=== PATIENT | male | born 1960 | race Caucasian/White ===

== ENCOUNTER 2018-01-01 06:12 | Inpatient (IN) ==
[2018-01-01] MEDS ORDERED: IOPAMIDOL 100 ML BOTTLE IV ONE (06:13)
[2018-01-01] MEDS ORDERED: LACTATED RINGERS 1,000 ML IV ONE (06:23)
[2018-01-01] MEDS ORDERED: ONDANSETRON 4 MG/2 ML VIAL IV ONE (06:24)
[2018-01-01 07:24] LABS: Mean Cell Volume 98.9 fL (80.0-100.0); Mean Corpuscular HGB Conc 33.1 g/dL (31.0-36.0); Mean Corpuscular Hemoglobin 32.7 pg (26.0-34.0); Platelet Count 257 K/mcL (140-440); RBC 4.93 M/mcL (4.50-5.90); Red Cell Distribution Width 13.7 % (11.5-14.5)
[2018-01-01 07:42] LABS: ALT/SGPT 78 U/l (0-40); Albumin 4.7 gm/dL (3.2-5.2); Albumin/Globulin Ratio 1.7 (1.0-2.3); Alkaline Phosphatase 62 U/L (39-117); Amylase 34 U/L (28-100); Blood Urea Nitrogen 24 mg/dl (6-20); Lipase 27 U/L (7-60)
[2018-01-01 07:53] LABS: Band Neutrophils % 4 % (0-10); Lymphocytes % 6 % (15-49); Monocytes % (Manual) 6 % (1-12); Platelet Estimate NORMAL (NORMAL); RBC Morphology NORMAL (NORMAL); Segmented Neutrophils % 84 % (38-78)
[2018-01-01 08:20] LABS: Appearance,Urine CLEAR; Bacteria,Urine 0 /hpf (0); Bilirubin,Urine NEG (NEG); Color,Urine YELLOW; Glucose,Urine (UA) >=500 mg/dL (NEG); Leukocyte Esterase,Urine NEG /uL (NEG); Mucus,Urine FEW /hpf (0); Protein,Urine NEG (NEG); Specific Gravity,Urine 1.025 (1.000-1.035); Urine Blood NEG mg/dL (<0.03); Urine RBC 0 /hpf (0-1); Urine Squamous Epithelial Cell 0 /hpf (0-4); Urine WBC 1 /hpf (0-4); Urobilinogen,Urine NEG (NEG)
--- NOTE | 2018-01-01 08:20 | Emergency Department Note ---
Abdominal Pain HPI - General Chief Complaint: Abdominal Pain Stated Complaint: Abd pain Time Seen by Provider: 01/01/18 08:09 Source: patient Mode of arrival: ambulatory Limitations: no limitations - History of Present Illness HPI Narrative: This patient began having lower abdominal pain yesterday afternoon about 4:00. He vomited a number of times and had a little bit of loose stool. This pain also went into both testicles. However neither testicle is swollen. The pain does not seem to be more prominent on one side or the other. He has had kidney stones in the past and still has his appendix. He apparently has had gallbladder problems in the still has his gallbladder. However his pain seems much lower than gallbladder pain. - Related Data Home Medications Medication Instructions Recorded Confirmed ondansetron HCl 4 mg tablet 4 mg PO Q4H 07/08/16 12/22/17 cholecalciferol (vitamin D3) 2,000 1,000 unit PO QDAY cap 02/24/17 12/22/17 unit capsule SUMAtriptan SUCCINATE [Imitrex] 25 mg PO PRN PRN 04/14/17 12/22/17 nortriptyline 10 mg capsule 10 mg PO QHS 04/22/17 12/22/17 Previous Rx's Medication Instructions Recorded True Metrix Glucose Meter See Dose Instructions .ROUTE 09/01/16 .MEDSUPPLY #1 each NS cyanocobalamin (vit B-12) 1,000 See Label Instructions IM .COMPLEX 09/25/16 mcg/mL injection solution #1 ml True Metrix Glucose Test Strip See Dose Instructions .ROUTE 04/22/17 .MEDSUPPLY #100 each NS allopurinol 300 mg tablet 300 mg PO QDAY #90 tab 07/22/17 duloxetine 60 mg capsule,delayed 60 mg PO QDAY #60 cap 07/22/17 release lisinopril 40 mg tablet 40 mg PO QDAY #90 tab 07/22/17 metformin ER 750 mg 750 mg PO BID #180 tab 07/22/17 tablet,extended release 24 hr omeprazole 20 mg capsule,delayed 20 mg PO DAILY #90 cap 07/22/17 release gabapentin 600 mg tablet 600 mg PO TID #120 tab 09/20/17 dulaglutide 0.75 mg/0.5 mL 0.75 mg SUB-Q QWEEK #2 ml 10/03/17 subcutaneous pen injector true metrix lancets #100 each 10/25/17 hydrocodone 7.5 mg-acetaminophen 1 tab PO QDAY PRN #30 tab 12/29/17 325 mg tablet Allergies Allergy/AdvReac Type Severity Reaction Status Date / Time No Known Drug Allergies Allergy Verified 01/01/18 06:18 Review of Systems All systems ED: reviewed and negative except as stated. Abdominal Pain PMH - Past Medical History Medical history: Reports: DM, hyperlipidemia, hypertension, migraine, other - Social History Smoking status: Never smoker Physical Exam Limitations: no limitations General appearance: alert Head: atraumatic Eye: Present: normal appearance ENT: normal exam Neck: Present: normal inspection Chest: Present: normal inspection Respiratory: Present: normal lung sounds bilaterally Cardiovascular: Present: regular rate, normal rhythm, normal heart sounds Abdominal: Present: soft, tenderness. Absent: distention, guarding, rebound, rigidity Abdominal tenderness: Present: RLQ, LLQ, suprapubic, moderate Neurological: Present: alert Psychiatric: Present: normal affect, normal mood Skin: Present: warm, dry, intact Course Vital Signs Temperature 97.3 F 01/01/18 06:14 Pulse Rate 88 01/01/18 06:14 Respiratory Rate 22 01/01/18 06:14 Blood Pressure 155/90 01/01/18 06:14 Pulse Oximetry (%) 100 01/01/18 06:14 Temperature 97.3 F 01/01/18 06:14 Pulse Rate 104 H 01/01/18 08:19 Respiratory Rate 22 01/01/18 06:14 Blood Pressure 141/66 01/01/18 08:36 Pulse Oximetry (%) 92 01/01/18 08:19 Abdominal Pain - [facility] Narrative Medical decision making narrative: This patient is getting an abdominal CT scan and care of the patient will be turned over to Dr. Wilder at 9 AM. - Lab Data Lab results reviewed: Yes I reviewed the patient's lab results. Result diagrams: 01/01/18 06:22 01/01/18 06:22 Lab Results 01/01/18 01/01/18 01/01/18 Range/Units 06:22 06:22 06:22 WBC 25.5 H (4.5-11.0) K/mcL RBC 4.93 (4.50-5.90) M/mcL Hgb 16.1 (13.5-16.5) g/dL Hct 48.8 (41.0-55.0) % POC Hct 49.0 (41.0-55.0) % MCV 98.9 (80.0-100.0) fL MCH 32.7 (26.0-34.0) pg MCHC 33.1 (31.0-36.0) g/dL RDW 13.7 (11.5-14.5) % Plt Count 257 (140-440) K/mcL MPV 8.9 (7.4-10.4) fL Total Counted 100 Seg Neutrophils % 84 H (38-78) % Band Neutrophils % 4 (0-10) % Lymphocytes % 6 L (15-49) % Monocytes % (Manual) 6 (1-12) % Platelet Estimate Normal (NORMAL) RBC Morphology Normal (NORMAL) POC Sodium 139 (133-145) mmol/L Sodium 138 (133-145) mmol/L POC Potassium 4.4 (3.3-5.1) mmol/L Potassium 4.6 (3.3-5.1) mmol/L POC Chloride 102 (96-108) mmol/L Chloride 100 (96-108) mmol/L Carbon Dioxide 22 (22-30) mmol/L POC Total CO2 23 (22-30) mmol/L Anion Gap 16.0 (8-16) POC BUN 26 H (6-20) mg/dl BUN 24 H (6-20) mg/dl Creatinine 0.9 (0.7-1.2) mg/dl POC Creatinine 0.8 (0.7-1.2) mg/dl GFR Calculation 94 Glucose 336 H (70-105) mg/dL POC Glucose 332 H (70-105) mg/dL Calcium 10.0 (8.6-10.4) mg/dl POC WB Ioniz Calcium 1.11 L (1.16-1.32) mmol/L Total Bilirubin 0.7 (0.0-1.0) mg/dL AST 26 (0-37) U/l ALT 78 H (0-40) U/l Alkaline Phosphatase 62 (39-117) U/L Total Protein 7.4 (5.9-8.4) gm/dL Albumin 4.7 (3.2-5.2) gm/dL Globulin 2.7 (2.2-3.7) gm/dL Albumin/Globulin Ratio 1.7 (1.0-2.3) Amylase 34 (28-100) U/L Lipase 27 (7-60) U/L Urine Color Urine Appearance Urine pH (5.0-9.0) Ur Specific [place] (1.000-1.035) Urine Protein (NEG) mg/dL Urine Glucose (UA) (NEG) mg/dL Urine Ketones (NEG) mg/dL Urine Occult Blood (<0.03) mg/dL Urine Nitrate (NEG) Urine Bilirubin (NEG) mg/dL Urine Urobilinogen (NEG) mg/dL Ur Leukocyte Esterase (NEG) /uL Urine RBC (0-1) /hpf Urine WBC (0-4) /hpf Ur Squamous Epith Cells (0-4) /hpf Urine Bacteria (0) /hpf Urine Mucus (0) /hpf Ur Culture Indicated? 01/01/18 Range/Units 07:31 WBC (4.5-11.0) K/mcL RBC (4.50-5.90) M/mcL Hgb (13.5-16.5) g/dL Hct (41.0-55.0) % POC Hct (41.0-55.0) % MCV (80.0-100.0) fL MCH (26.0-34.0) pg MCHC (31.0-36.0) g/dL RDW (11.5-14.5) % Plt Count (140-440) K/mcL MPV (7.4-10.4) fL Total Counted Seg Neutrophils % (38-78) % Band Neutrophils % (0-10) % Lymphocytes % (15-49) % Monocytes % (Manual) (1-12) % Platelet Estimate (NORMAL) RBC Morphology (NORMAL) POC Sodium (133-145) mmol/L Sodium (133-145) mmol/L POC Potassium (3.3-5.1) mmol/L Potassium (3.3-5.1) mmol/L POC Chloride (96-108) mmol/L Chloride (96-108) mmol/L Carbon Dioxide (22-30) mmol/L POC Total CO2 (22-30) mmol/L Anion Gap (8-16) POC BUN (6-20) mg/dl BUN (6-20) mg/dl Creatinine (0.7-1.2) mg/dl POC Creatinine (0.7-1.2) mg/dl GFR Calculation Glucose (70-105) mg/dL POC Glucose (70-105) mg/dL Calcium (8.6-10.4) mg/dl POC WB Ioniz Calcium (1.16-1.32) mmol/L Total Bilirubin (0.0-1.0) mg/dL AST (0-37) U/l ALT (0-40) U/l Alkaline Phosphatase (39-117) U/L Total Protein (5.9-8.4) gm/dL Albumin (3.2-5.2) gm/dL Globulin (2.2-3.7) gm/dL Albumin/Globulin Ratio (1.0-2.3) Amylase (28-100) U/L Lipase (7-60) U/L Urine Color Yellow Urine Appearance Clear Urine pH 5.0 (5.0-9.0) Ur Specific [place] 1.025 (1.000-1.035) Urine Protein Neg (NEG) mg/dL Urine Glucose (UA) >=500 A (NEG) mg/dL Urine Ketones 20 A (NEG) mg/dL Urine Occult Blood Neg (<0.03) mg/dL Urine Nitrate Neg (NEG) Urine Bilirubin Neg (NEG) mg/dL Urine Urobilinogen Neg (NEG) mg/dL Ur Leukocyte Esterase Neg (NEG) /uL Urine RBC 0 (0-1) /hpf Urine WBC 1 (0-4) /hpf Ur Squamous Epith Cells 0 (0-4) /hpf Urine Bacteria 0 (0) /hpf Urine Mucus Few (0) /hpf Ur Culture Indicated? No Disposition Pt seen by PUBLIC TRANSPORTATION INSPECTOR/PA only: No Clinical Impression: Abdominal pain Disposition: Still a Patient Referrals: Antonio Robin MD [Primary Care Provider] -
--- NOTE | 2018-01-01 10:17 | Cat Scan Report ---
CLINICAL INFORMATION: Abdominal pain and leukocytosis COMPARISON: 08/28/[address] TECHNIQUE: Following enteric contrast, 80 cc of Isovue-300 were injected intravenously, and 60 seconds later, 0.625 mm helical slices were obtained from the mid heart through the subtrochanteric regions. Following reconstruction, 2.5 mm sagittal, coronal and axial reformatted images were processed and reviewed at bone, lung and soft tissue windows. Five minutes later, 0.625 mm helical slices were obtained from the mid heart through the kidneys and viewed at soft tissue windows.The exam was performed using radiation dose optimization techniques including, but not limited to, automated exposure control, adjustment of the mA and/or kV according to patient size and use of iterative reconstruction technique. FINDINGS: Mild bibasilar atelectasis appreciated. No effusion. The visualized heart is normal. Images through the abdomen show marked fatty change within the liver with a small region of focal fat sparing in the ki hepatis. It is identical to the remote study. No focal hepatic lesions. The gallbladder and bile ducts are normal. Both kidneys, adrenal glands, spleen, pancreas and aorta, including aortic branches, are normal in size, configuration and attenuation without focal lesion. Images through the pelvis show Durant catheter properly position in the urinary bladder which is collapsed - there are no gross evidence of bladder normalities. The prostate and seminal vesicles are normal. There is marked concentric wall thickening of the distal one half of the transverse, descending colon and proximal half of the sigmoid colon. In this region, the right wall is low attenuation and there is moderate inflammation or edema in the pericolonic fat. Small amount of fluid present in the pericolonic gutter and also the deep true pelvis. The remainder of the colon, small bowel and stomach are normal. Bone windows show no osseous abnormality IMPRESSION: Marked concentric wall thickening of distal one half of the transverse, descending and proximal one half of the sigmoid colon. Primary diagnostic considerations would be infectious colitis or, possible, inflammatory bowel disease. Ischemic colitis would be much less likely. Suggest colonoscopy Marked fatty change within the liver - stable since the remote CT over 12 years ago Interpreted and Authenticated by: Rogelio Pabon 01/01/18
[2018-01-01] MEDS ORDERED: INSULIN REGULAR, HUMAN 1 UNIT/0.01 ML UNIT IV ONE (10:20)
--- NOTE | 2018-01-01 12:22 | Emergency Department Note ---
Abdominal Pain HPI - General Chief Complaint: Abdominal Pain Stated Complaint: Abd pain Time Seen by Provider: 01/01/18 08:09 Source: patient Mode of arrival: ambulatory Limitations: no limitations - History of Present Illness HPI Narrative: Received patient in checkout from Dr. Chris linares. Patient everted been seen and examined and worked up with laboratory. Because of leukocytosis Dr. linares ordered a CT scan of the abdomen pelvis. Patient had been complaining of lower abdominal pain along with nausea vomiting diarrhea. He was mildly tachycardic but without fever - Related Data Home Medications Medication Instructions Recorded Confirmed ondansetron HCl 4 mg tablet 4 mg PO Q4H 07/08/16 01/01/18 cholecalciferol (vitamin D3) 2,000 1,000 unit PO QDAY cap 02/24/17 01/01/18 unit capsule SUMAtriptan SUCCINATE [Imitrex] 25 mg PO PRN PRN 04/14/17 01/01/18 nortriptyline 10 mg capsule 10 mg PO QHS 04/22/17 01/01/18 Previous Rx's Medication Instructions Recorded True Metrix Glucose Meter See Dose Instructions .ROUTE 09/01/16 .MEDSUPPLY #1 each NS cyanocobalamin (vit B-12) 1,000 See Label Instructions IM .COMPLEX 09/25/16 mcg/mL injection solution #1 ml True Metrix Glucose Test Strip See Dose Instructions .ROUTE 04/22/17 .MEDSUPPLY #100 each NS allopurinol 300 mg tablet 300 mg PO QDAY #90 tab 07/22/17 duloxetine 60 mg capsule,delayed 60 mg PO QDAY #60 cap 07/22/17 release lisinopril 40 mg tablet 40 mg PO QDAY #90 tab 07/22/17 metformin ER 750 mg 750 mg PO BID #180 tab 07/22/17 tablet,extended release 24 hr omeprazole 20 mg capsule,delayed 20 mg PO DAILY #90 cap 07/22/17 release gabapentin 600 mg tablet 600 mg PO TID #120 tab 09/20/17 dulaglutide 0.75 mg/0.5 mL 0.75 mg SUB-Q QWEEK #2 ml 10/03/17 subcutaneous pen injector true metrix lancets #100 each 10/25/17 hydrocodone 7.5 mg-acetaminophen 1 tab PO QDAY PRN #30 tab 12/29/17 325 mg tablet Allergies Allergy/AdvReac Type Severity Reaction Status Date / Time No Known Drug Allergies Allergy Verified 01/01/18 06:18 Abdominal Pain PMH - Past Medical History Medical history: Reports: DM, hyperlipidemia, hypertension, migraine, other - Social History Smoking status: Never smoker Physical Exam Examination the patient's abdomen show tenderness in bilateral lower quadrants. No rigidity or guarding though but patient is lying flat Limitations: no limitations General appearance: alert Course Vital Signs Temperature 97.3 F 01/01/18 06:14 Pulse Rate 88 01/01/18 06:14 Respiratory Rate 22 01/01/18 06:14 Blood Pressure 155/90 01/01/18 06:14 Pulse Oximetry (%) 100 01/01/18 06:14 Temperature 97.6 F 01/01/18 13:56 Pulse Rate 93 H 01/01/18 13:56 Respiratory Rate 16 01/01/18 13:56 Blood Pressure 173/97 01/01/18 13:56 Pulse Oximetry (%) 93 01/01/18 13:56 Abdominal Pain - Lab Data Lab results reviewed: Yes I reviewed the patient's lab results. Result diagrams: 01/01/18 06:22 01/01/18 06:22 Lab Results 01/01/18 01/01/18 01/01/18 Range/Units 06:22 06:22 06:22 WBC 25.5 H (4.5-11.0) K/mcL RBC 4.93 (4.50-5.90) M/mcL Hgb 16.1 (13.5-16.5) g/dL Hct 48.8 (41.0-55.0) % POC Hct 49.0 (41.0-55.0) % MCV 98.9 (80.0-100.0) fL MCH 32.7 (26.0-34.0) pg MCHC 33.1 (31.0-36.0) g/dL RDW 13.7 (11.5-14.5) % Plt Count 257 (140-440) K/mcL MPV 8.9 (7.4-10.4) fL Total Counted 100 Seg Neutrophils % 84 H (38-78) % Band Neutrophils % 4 (0-10) % Lymphocytes % 6 L (15-49) % Monocytes % (Manual) 6 (1-12) % Platelet Estimate Normal (NORMAL) RBC Morphology Normal (NORMAL) PT INR APTT POC Sodium 139 (133-145) mmol/L Sodium 138 (133-145) mmol/L POC Potassium 4.4 (3.3-5.1) mmol/L Potassium 4.6 (3.3-5.1) mmol/L POC Chloride 102 (96-108) mmol/L Chloride 100 (96-108) mmol/L Carbon Dioxide 22 (22-30) mmol/L POC Total CO2 23 (22-30) mmol/L Anion Gap 16.0 (8-16) POC BUN 26 H (6-20) mg/dl BUN 24 H (6-20) mg/dl Creatinine 0.9 (0.7-1.2) mg/dl POC Creatinine 0.8 (0.7-1.2) mg/dl GFR Calculation 94 Glucose 336 H (70-105) mg/dL POC Glucose 332 H (70-105) mg/dL Calcium 10.0 (8.6-10.4) mg/dl POC WB Ioniz Calcium 1.11 L (1.16-1.32) mmol/L Total Bilirubin 0.7 (0.0-1.0) mg/dL AST 26 (0-37) U/l ALT 78 H (0-40) U/l Alkaline Phosphatase 62 (39-117) U/L Total Protein 7.4 (5.9-8.4) gm/dL Albumin 4.7 (3.2-5.2) gm/dL Globulin 2.7 (2.2-3.7) gm/dL Albumin/Globulin Ratio 1.7 (1.0-2.3) Amylase 34 (28-100) U/L Lipase 27 (7-60) U/L Urine Color Urine Appearance Urine pH (5.0-9.0) Ur Specific [place] (1.000-1.035) Urine Protein (NEG) mg/dL Urine Glucose (UA) (NEG) mg/dL Urine Ketones (NEG) mg/dL Urine Occult Blood (<0.03) mg/dL Urine Nitrate (NEG) Urine Bilirubin (NEG) mg/dL Urine Urobilinogen (NEG) mg/dL Ur Leukocyte Esterase (NEG) /uL Urine RBC (0-1) /hpf Urine WBC (0-4) /hpf Ur Squamous Epith Cells (0-4) /hpf Urine Bacteria (0) /hpf Urine Mucus (0) /hpf Ur Culture Indicated? 01/01/18 01/01/18 Range/Units 06:22 07:31 WBC (4.5-11.0) K/mcL RBC (4.50-5.90) M/mcL Hgb (13.5-16.5) g/dL Hct (41.0-55.0) % POC Hct (41.0-55.0) % MCV (80.0-100.0) fL MCH (26.0-34.0) pg MCHC (31.0-36.0) g/dL RDW (11.5-14.5) % Plt Count (140-440) K/mcL MPV (7.4-10.4) fL Total Counted Seg Neutrophils % (38-78) % Band Neutrophils % (0-10) % Lymphocytes % (15-49) % Monocytes % (Manual) (1-12) % Platelet Estimate (NORMAL) RBC Morphology (NORMAL) PT TNP INR TNP APTT TNP POC Sodium (133-145) mmol/L Sodium (133-145) mmol/L POC Potassium (3.3-5.1) mmol/L Potassium (3.3-5.1) mmol/L POC Chloride (96-108) mmol/L Chloride (96-108) mmol/L Carbon Dioxide (22-30) mmol/L POC Total CO2 (22-30) mmol/L Anion Gap (8-16) POC BUN (6-20) mg/dl BUN (6-20) mg/dl Creatinine (0.7-1.2) mg/dl POC Creatinine (0.7-1.2) mg/dl GFR Calculation Glucose (70-105) mg/dL POC Glucose (70-105) mg/dL Calcium (8.6-10.4) mg/dl POC WB Ioniz Calcium (1.16-1.32) mmol/L Total Bilirubin (0.0-1.0) mg/dL AST (0-37) U/l ALT (0-40) U/l Alkaline Phosphatase (39-117) U/L Total Protein (5.9-8.4) gm/dL Albumin (3.2-5.2) gm/dL Globulin (2.2-3.7) gm/dL Albumin/Globulin Ratio (1.0-2.3) Amylase (28-100) U/L Lipase (7-60) U/L Urine Color Yellow Urine Appearance Clear Urine pH 5.0 (5.0-9.0) Ur Specific [place] 1.025 (1.000-1.035) Urine Protein Neg (NEG) mg/dL Urine Glucose (UA) >=500 A (NEG) mg/dL Urine Ketones 20 A (NEG) mg/dL Urine Occult Blood Neg (<0.03) mg/dL Urine Nitrate Neg (NEG) Urine Bilirubin Neg (NEG) mg/dL Urine Urobilinogen Neg (NEG) mg/dL Ur Leukocyte Esterase Neg (NEG) /uL Urine RBC 0 (0-1) /hpf Urine WBC 1 (0-4) /hpf Ur Squamous Epith Cells 0 (0-4) /hpf Urine Bacteria 0 (0) /hpf Urine Mucus Few (0) /hpf Ur Culture Indicated? No - Radiology Data Radiology results reviewed: Yes I reviewed the patient's radiology results. CT scan showed possible colitis. Please see full report Disposition Pt seen by INSURANCE SALESMAN/PA only: No Clinical Impression: Colitis Summary: After getting CT report back and discussing the situation with the patient, I discussed the patient with Dr. Isma Oshea general surgeon who agreed to consult on the patient. He decided to admit the patient for further workup and care Disposition: Xfer As Inpt ([facility]) Condition: Serious
--- NOTE | 2018-01-01 13:28 | General Surg History&Physical ---
History of Present Illness Patient information: Note initiated : 01/01/18 at 1:25 pm Service Date, if different from initiated Date: [] Patient: Dandre Smith a 57 y/o M admitted on for Abd pain. Chief Complaint: [recurrent abdominal pain nausea vomiting diarrhea] HPI: Mr. Smith is a 57 year old M was admitted with severe abdominal pain.. He stated that about 1600 hrs. yesterday he had severe mid abdominal pain that increased on the left side and was followed with nausea vomiting and diarrhea. He had at least 6 episodes of vomiting.. He had severe cramps throughout the night and noted that he had blood in his bowels. He finally came to the emergency room for evaluation. He states that he had a similar episode about 4 weeks ago when he had severe pain with nausea but no vomiting or diarrhea. This gradually resolved. In the emergency room he was noted to have a tender abdomen.. His white blood count was 25,000. CT shows circumferential thickening of the distal transverse descending and sigmoid colon.. There is no free air. There is some edema of the mesentery. He does not have an obstructive pattern. There is no evidence of pneumatosis. Patient is felt to have segmental ischemic colitis and is admitted for treatment. Lactic acid level is pending. Review of Systems - Constitutional anorexia, fatigue, headache(s), malaise, snoring, weakness - EENT Nose, mouth and throat: abnormal hearing, dental pain, other (bilateral tinnitus ) - Cardiovascular no chest pain with activity, no dyspnea on exertion, no palpatations, no syncope - Respiratory cough, snoring, no excessive phlegm production, no pain with cough - Gastrointestinal abdominal pain, belching, change in bowel habits, cramping, diarrhea, heartburn , hematochezia, nausea, vomiting - Genitourinary difficulty urinating, scrotal swelling, testicular pain, urinary hesitancy, urinary urgency - Musculoskeletal arthralgias, back pain, joint swelling, stiffness, tingling - Integumentary no new lesions, no non-healing lesions, no pruritus, no rash - Neurological abnormal hearing, numbness, paresthesias, restless legs, no convulsions, no dizziness, no frequent falls, no vertigo - Psychiatric anxiety, depression - Endocrine no fatigue, no palpitations, no polydipsia, no polyphagia, no polyuria - Hematologic/Lymphatic no easy bleeding, no easy bruising, no lymphadenopathy - Allergic/Immunologic no tongue swelling, no throat swelling, no uticaria, no wheezing, no lip swelling Past History Past medical history: Hepatitis C treated STOUT syndrome Hypertension Diabetes mellitus Diabetic polyneuropathy Right hip pain Gout Chronic obstructive sleep apnea Past surgical history: Right rotator cuff repair 2 Left rotator cuff repair Left knee meniscectomy Past family history: Mother age 79 with hypertension and history of breast cancer Father age 64 with liver cancer Grandmother with diabetes mellitus 4 siblings alive and well Past social history: Present tobacco use Regular marijuana use History of alcohol abuse stopped in April 20 Medications and Allergies Home Medications Medication Instructions Recorded Confirmed Type ondansetron HCl 4 mg tablet 4 mg PO Q4H 07/08/16 01/01/18 History True Metrix Glucose Meter See Dose Instructions .ROUTE 09/01/16 12/22/17 Rx .MEDSUPPLY #1 each NS cyanocobalamin (vit B-12) 1,000 See Label Instructions IM .COMPLEX 09/25/16 Rx mcg/mL injection solution #1 ml cholecalciferol (vitamin D3) 2,000 1,000 unit PO QDAY cap 02/24/17 01/01/18 History unit capsule SUMAtriptan SUCCINATE [Imitrex] 25 mg PO PRN PRN 04/14/17 01/01/18 History True Metrix Glucose Test Strip See Dose Instructions .ROUTE 04/22/17 12/22/17 Rx .MEDSUPPLY #100 each NS nortriptyline 10 mg capsule 10 mg PO QHS 04/22/17 01/01/18 History allopurinol 300 mg tablet 300 mg PO QDAY #90 tab 07/22/17 01/01/18 Rx duloxetine 60 mg capsule,delayed 60 mg PO QDAY #60 cap 07/22/17 01/01/18 Rx release lisinopril 40 mg tablet 40 mg PO QDAY #90 tab 07/22/17 01/01/18 Rx metformin ER 750 mg 750 mg PO BID #180 tab 07/22/17 01/01/18 Rx tablet,extended release 24 hr omeprazole 20 mg capsule,delayed 20 mg PO DAILY #90 cap 07/22/17 01/01/18 Rx release gabapentin 600 mg tablet 600 mg PO TID #120 tab 09/20/17 01/01/18 Rx dulaglutide 0.75 mg/0.5 mL 0.75 mg SUB-Q QWEEK #2 ml 10/03/17 01/01/18 Rx subcutaneous pen injector true metrix lancets #100 each 10/25/17 12/22/17 Rx hydrocodone 7.5 mg-acetaminophen 1 tab PO QDAY PRN #30 tab 12/29/17 01/01/18 Rx 325 mg tablet Allergies Allergy/AdvReac Type Severity Reaction Status Date / Time No Known Drug Allergies Allergy Verified 01/01/18 06:18 Exam Temp Pulse Resp BP Pulse Ox 97.3 F 92 H 22 151/91 96 01/01/18 06:14 01/01/18 12:40 01/01/18 06:14 01/01/18 12:40 01/01/18 12:40 - General physical appearance well developed, well nourished, no distress - Eyes PERRL, normal ocular movement - ENT normal pinna, normal nares, normal mucosa, no hearing loss, no congestion - Head Head exam IM: Present: atraumatic, normal inspection, normocephalic - Neck no masses, no bruits, trachea midline, no venous distension, other (right neck mass anterior to the sternocleidomastoid muscle mid neck which appears to be fixed but nontender; not associated with the thyroid gland) - Cardiovascular Cardiovascular exam IM: Present: normal rate and rhythm, RRR, +S1, +S2. Absent : gallop, JVD, systolic murmur - Respiratory normal expansion, normal respiratory effort, clear to percussion, clear to auscultation - Abdomen Abdomen: Present: soft, tender ( diffuse tenderness more prominent left upper quadrant and left lateral abdomen extending down into the pelvis), bowel sounds , distended ( diffusely distended and tympanitic with guarding) Hernia: Present: none - Genitourinary Present: normal penis with no external lesions - Integumentary Present: no rash, no growths, no abnormal pigmentation - Neurologic Present: normal coordination, normal sensation - Musculoskeletal Present: normal gait, normal posture - Psychiatric Present: oriented to time, oriented to person, oriented to place, speech is normal, memory intact Assessment and Plan (1) Acute ischemic colitis Bowel rest Zosyn and Flagyl IV Follow-up CT in 4 days Status: Acute (2) Mass of right side of neck CT of neck soft tissue with contrast with possible follow-up biopsy Status: Acute (3) Diabetic neuropathy Continue home medications Status: Acute Qualifiers: Diabetes mellitus type: type 2 Diabetes mellitus complication detail: with other neurological complication Qualified Code(s): E11.49 - Type 2 diabetes mellitus with other diabetic neurological complication (4) Hereditary hemochromatosis Status: Acute (5) TRAM (obstructive sleep apnea) Status: Acute (6) STOUT (nonalcoholic steatohepatitis) Status: Chronic (7) Type 2 diabetes mellitus Status: Chronic Comment: With peripheral neuropathy Qualifiers: Diabetes mellitus halfway insulin use: without halfway use Diabetes mellitus complication status: with neurologic complications Diabetes mellitus complication detail: with polyneuropathy Qualified Code(s): E11.42 - Type 2 diabetes mellitus with diabetic polyneuropathy
[2018-01-01] MEDS ORDERED: ONDANSETRON 4 MG/2 ML VIAL IV PRN (13:42)
--- NOTE | 2018-01-01 14:33 | XRay Report ---
CLINICAL INFORMATION: Preoperative evaluation - hypoxemia COMPARISON: None. FINDINGS: The heart size, mediastinum and pulmonary vessels are unremarkable. The lungs are clear. There are no effusions. The bones and soft tissues are within normal limits. IMPRESSION: Normal chest. Interpreted and Authenticated by: Rogelio Pabon 01/01/18
[2018-01-01] MEDS: 0.9 % SODIUM CHLORIDE 1,000 ML IV SCH ×3 (14:48→23:52)
[2018-01-01] MEDS: PIPERACILLIN SODIUM/TAZOBACTAM 3.375 GM in DEXTROSE 5% IN WATER 50 ML IV SCH ×3 (14:52→23:52)
[2018-01-01] MEDS: GABAPENTIN 300 MG CAPSULE PO SCH ×2 (14:52→21:02)
[2018-01-01] MEDS: 0.9 % SODIUM CHLORIDE 10 ML SYRINGE IV SCH ×2 (16:31→21:05)
[2018-01-01] MEDS ORDERED: INSULIN LISPRO 1 UNIT/0.01 ML UNIT SQ ONE (17:10)
[2018-01-01] MEDS: INSULIN LISPRO 1 UNIT/0.01 ML UNIT SQ SCH ×2 (17:17→21:02)
[2018-01-01] MEDS: HYDROmorphone 2 MG TABLET PO PRN (17:17)
[2018-01-01] MEDS ORDERED: INSULIN LISPRO 1 UNIT/0.01 ML UNIT SQ SCH (18:00)
[2018-01-01] MEDS: NORTRIPTYLINE 10 MG CAPSULE PO SCH (21:02)
[2018-01-02] MEDS: 0.9 % SODIUM CHLORIDE 10 ML SYRINGE IV SCH ×3 (05:22→21:33)
[2018-01-02] MEDS: 0.9 % SODIUM CHLORIDE 1,000 ML IV SCH ×4 (05:22→21:31)
[2018-01-02 05:28] LABS: Mean Cell Volume 99.1 fL (80.0-100.0); Mean Corpuscular HGB Conc 33.3 g/dL (31.0-36.0); Platelet Count 187 K/mcL (140-440); RBC 4.27 M/mcL (4.50-5.90)
[2018-01-02] MEDS: PIPERACILLIN SODIUM/TAZOBACTAM 3.375 GM in DEXTROSE 5% IN WATER 50 ML IV SCH ×3 (05:35→19:57)
[2018-01-02 06:04] LABS: ALT/SGPT 48 U/l (0-40); Albumin 3.7 gm/dL (3.2-5.2); Albumin/Globulin Ratio 1.5 (1.0-2.3); Alkaline Phosphatase 55 U/L (39-117); Bilirubin,Direct < 0.2 mg/dL (0.0-0.3); Blood Urea Nitrogen 15 mg/dl (6-20); Gamma Glutamyl Transpeptidase 35 U/L (8-61); Uric Acid 2.6 mg/dL (2.5-8.0)
[2018-01-02 06:35] LABS: Hemoglobin A1C 8.6 % HGB (4.0-6.0)
[2018-01-02] MEDS: INSULIN LISPRO 1 UNIT/0.01 ML UNIT SQ SCH ×4 (07:43→21:25)
[2018-01-02] MEDS: PANTOPRAZOLE 40 MG TABLET PO SCH (07:43)
[2018-01-02 07:48] LABS: Band Neutrophils % 4 % (0-10); Lymphocytes % 9 % (15-49); Monocytes % (Manual) 13 % (1-12); Platelet Estimate NORMAL (NORMAL); RBC Morphology NORMAL (NORMAL); Segmented Neutrophils % 74 % (38-78)
[2018-01-02] MEDS: DULoxetine 30 MG CAPSULE PO SCH (08:55)
[2018-01-02] MEDS: LISINOPRIL 20 MG TABLET PO SCH (08:55)
[2018-01-02] MEDS: ENOXAPARIN 40 MG/0.4 ML SYRINGE SQ SCH (08:56)
[2018-01-02] MEDS: GABAPENTIN 300 MG CAPSULE PO SCH ×3 (08:56→21:24)
[2018-01-02] MEDS: HYDROmorphone 2 MG TABLET PO PRN (12:40)
--- NOTE | 2018-01-02 14:08 | General Surgery Progress Note ---
Subjective Patient reports: feels better, pain is less (now he had abdominal pain), flatus , bowel movement, blood in stool, afebrile Narrative: Note initiated : 01/02/18 at 2:06 pm Service Date, if different from initiated Date: [] Patient: Dandre Smith 57 y/o M admitted on 01/01/18 for Abd pain. Chief Complaint: [patient feels better but he is still having significant abdominal pain which is primarily left sided and hypogastric and suprapubic. He is passing flatus and has had bowel movement with some blood seen. He has not had nausea or vomiting. White blood count is minimally decreased.] Objective Temp Pulse Resp BP Pulse Ox 98.7 F 89 16 127/76 91 01/02/18 12:41 01/02/18 11:57 01/02/18 11:57 01/02/18 11:57 01/02/18 12:41 - Additional Data Intake & Output - Last 24 hours: Intake & Output 12/31/17 01/01/18 01/02/18 01/03/18 05:59 05:59 05:59 05:59 Intake Total 4050 / 4050 2610 / 2610 Output Total 1225 / 1225 700 / 700 Balance 2825 / 2825 1910 / 1910 Weight 159 lb - General physical appearance well developed, well nourished, moderate pain - Eyes PERRL, normal ocular movement - ENT normal pinna, normal nares, normal mucosa, no hearing loss, no congestion - Neck other (right neck mass) - Respiratory normal expansion, normal respiratory effort, clear to percussion, clear to auscultation - Cardiovascular Cardiovascular exam: Present: normal rate and rhythm, RRR, +S1, +S2. Absent: JVD, tachycardia - Abdomen tender ( diffuse tenderness of left abdomen and pelvis), bowel sounds (present) , surgical scars (none), masses (none) - Integumentary no rash, no growths, no abnormal pigmentation - Neurologic normal coordination, normal sensation - Musculoskeletal normal gait, normal posture - Psychiatric oriented to time, oriented to person, oriented to place, speech is normal, memory intact - Labs 01/02/18 04:00 01/02/18 04:00 Diabetes panel 01/01/18 01/02/18 01/02/18 Range/Units 06:22 04:00 04:00 Sodium 134 (133-145) mmol/L Potassium 4.0 (3.3-5.1) mmol/L Chloride 98 (96-108) mmol/L Carbon Dioxide 25 (22-30) mmol/L BUN 15 (6-20) mg/dl Creatinine 0.8 (0.7-1.2) mg/dl Glucose 209 H (70-105) mg/dL Hemoglobin A1c TNP 8.6 H Calcium 8.9 (8.6-10.4) mg/dl AST 15 (0-37) U/l ALT 48 H (0-40) U/l Alkaline Phosphatase 55 (39-117) U/L Total Protein 6.2 (5.9-8.4) gm/dL Albumin 3.7 (3.2-5.2) gm/dL Triglycerides 102 (<150) mg/dl Thyroid panel 01/01/18 Range/Units 06:22 TSH 1.34 (0.27-5.01) uIU/ml Calcium panel 01/02/18 Range/Units 04:00 Calcium 8.9 (8.6-10.4) mg/dl Phosphorus 2.3 L (2.7-4.5) mg/dL Albumin 3.7 (3.2-5.2) gm/dL Pituitary panel 01/01/18 01/02/18 Range/Units 06:22 04:00 Sodium 134 (133-145) mmol/L Potassium 4.0 (3.3-5.1) mmol/L Chloride 98 (96-108) mmol/L Carbon Dioxide 25 (22-30) mmol/L BUN 15 (6-20) mg/dl Creatinine 0.8 (0.7-1.2) mg/dl Glucose 209 H (70-105) mg/dL Calcium 8.9 (8.6-10.4) mg/dl TSH 1.34 (0.27-5.01) uIU/ml Adrenal panel 01/02/18 Range/Units 04:00 Sodium 134 (133-145) mmol/L Potassium 4.0 (3.3-5.1) mmol/L Chloride 98 (96-108) mmol/L Carbon Dioxide 25 (22-30) mmol/L BUN 15 (6-20) mg/dl Creatinine 0.8 (0.7-1.2) mg/dl Glucose 209 H (70-105) mg/dL Calcium 8.9 (8.6-10.4) mg/dl Total Bilirubin 1.0 (0.0-1.0) mg/dL AST 15 (0-37) U/l ALT 48 H (0-40) U/l Alkaline Phosphatase 55 (39-117) U/L Total Protein 6.2 (5.9-8.4) gm/dL Albumin 3.7 (3.2-5.2) gm/dL Assessment and Plan (1) Acute ischemic colitis Status: Acute Assessment and plan: Will continue present therapy Current Visit: Yes (2) Mass of right side of neck Status: Acute Assessment and plan: CT of neck to be done today Current Visit: Yes (3) Diabetic neuropathy Status: Acute Current Visit: No (4) Hereditary hemochromatosis Status: Acute Current Visit: No (5) TRAM (obstructive sleep apnea) Status: Acute Current Visit: No (6) STOUT (nonalcoholic steatohepatitis) Status: Chronic Current Visit: No (7) Type 2 diabetes mellitus Problem details: With peripheral neuropathy Status: Chronic Current Visit: No - Time Spent With Patient Total time spent is greater than 50% in coordination of care (as documented) at patient's floor/unit and/or counseling patient:
[2018-01-02] MEDS ORDERED: IOPAMIDOL 100 ML BOTTLE IV ONE (14:24)
[2018-01-02] MEDS ORDERED: POTASSIUM PHOSPHATE 40 MEQ in DEXTROSE 5% IN WATER 500 ML IV ONE (15:00)
[2018-01-02] MEDS ORDERED: MEPERIDINE 50 MG/ML INJECTION IV PRN (17:20)
[2018-01-02] MEDS ORDERED: KETOROLAC 15 MG/ML VIAL ONE ×2 (17:23→17:28)
[2018-01-02] MEDS: KETOROLAC 30 MG/ML VIAL IV SCH ×2 (18:03→23:10)
[2018-01-02] MEDS ORDERED: MEPERIDINE 50 MG/ML INJECTION ONE (18:21)
[2018-01-02] MEDS: ACETAMINOPHEN 1,000 MG/100 ML BOTTLE IV SCH (20:45)
--- NOTE | 2018-01-02 20:59 | Cat Scan Report ---
CLINICAL INFORMATION: Small indurated mass in the right anterior triangle of the neck COMPARISON: None. TECHNIQUE: 80 cc of Isovue-300 were injected intravenously and 25 seconds later, 2.5 mm helical slices were obtained from the inferior orbit through the supraclavicular region. Following reconstruction, 2.5 mm sagittal and coronal reformations were processed. The exam was reviewed at bone and soft tissue windows . The exam was performed using radiation dose optimization techniques including, but not limited to, automated exposure control, adjustment of the mA and/or kV according to patient size and use of iterative reconstruction technique. FINDINGS: There is a 2 cm well-circumscribed low-attenuation mass either adjacent to, or arising from, the anterior border of the mid right sternocleidomastoid muscle. The lesion is located anterior to the right internal jugular vein and lateral to the carotid bifurcation. There is a single septation extending across the mass. It measures 27 Hounsfield units. There is no adenopathy in the adjacent soft tissues nor the remainder of the deep or cervical region. The carotid and jugular vascular systems are normal. True and false focal cords, epiglottis, aryepiglottic folds, tongue base and prevertebral soft tissues are all normal. Thyroid is normal. The submandibular and parotid glands are symmetric and appear unremarkable. Cervical spine is anatomically aligned. At C4-5 and C5-6 mild broad disc for, disease with right-sided asymmetry resulting in moderate right lateral recess narrowing potentially impinging the exiting right right C5 and C6 nerve roots. IMPRESSION: 2 cm well-defined low-attenuation lesion either arising from, or juxtaposed to, the anterior border of the right sternocleidomastoid muscle. This could represent a sarcoma, a pathologic lymph node, lymphoma or a complex second brachial cleft cyst. Percutaneous ultrasound-guided biopsy has been ordered C4-5 and C5-6: Moderate broad disc spur, disease right-sided asymmetry resulting in moderate right lateral recess and IV foraminal narrowing at each level possible impingement exiting right C5 and C6 nerve roots. Interpreted and Authenticated by: Rogelio Pabon 01/02/18
[2018-01-02] MEDS: NORTRIPTYLINE 10 MG CAPSULE PO SCH (21:24)
[2018-01-03] MEDS: PIPERACILLIN SODIUM/TAZOBACTAM 3.375 GM in DEXTROSE 5% IN WATER 50 ML IV SCH ×4 (00:41→17:53)
[2018-01-03] MEDS: ACETAMINOPHEN 1,000 MG/100 ML BOTTLE IV SCH ×4 (02:25→20:03)
[2018-01-03] MEDS: 0.9 % SODIUM CHLORIDE 1,000 ML IV SCH ×4 (03:23→23:51)
[2018-01-03] MEDS: 0.9 % SODIUM CHLORIDE 10 ML SYRINGE IV SCH ×3 (04:45→22:49)
[2018-01-03] MEDS: KETOROLAC 30 MG/ML VIAL IV SCH ×3 (05:03→18:33)
[2018-01-03 05:37] LABS: Mean Cell Volume 99.5 fL (80.0-100.0); Mean Corpuscular HGB Conc 32.9 g/dL (31.0-36.0); Mean Corpuscular Hemoglobin 32.8 pg (26.0-34.0); Platelet Count 158 K/mcL (140-440); RBC 3.95 M/mcL (4.50-5.90); Red Cell Distribution Width 13.3 % (11.5-14.5)
[2018-01-03 06:10] LABS: ALT/SGPT 38 U/l (0-40); Albumin 3.1 gm/dL (3.2-5.2); Albumin/Globulin Ratio 1.1 (1.0-2.3); Alkaline Phosphatase 72 U/L (39-117); Bilirubin,Direct 0.3 mg/dL (0.0-0.3); Blood Urea Nitrogen 11 mg/dl (6-20); Gamma Glutamyl Transpeptidase 47 U/L (8-61); Uric Acid 2.8 mg/dL (2.5-8.0)
[2018-01-03 06:22] LABS: Band Neutrophils % 7 % (0-10); Lymphocytes % 9 % (15-49); Monocytes % (Manual) 12 % (1-12); Platelet Estimate NORMAL (NORMAL); RBC Morphology NORMAL (NORMAL); Segmented Neutrophils % 72 % (38-78)
[2018-01-03] MEDS: PANTOPRAZOLE 40 MG TABLET PO SCH (07:57)
[2018-01-03] MEDS: INSULIN LISPRO 1 UNIT/0.01 ML UNIT SQ SCH ×4 (07:58→20:57)
[2018-01-03] MEDS ORDERED: POTASSIUM PHOSPHATE 40 MEQ in DEXTROSE 5% IN WATER 500 ML IV ONE (08:57)
[2018-01-03] MEDS ORDERED: MAGNESIUM SULFATE 32.48 MEQ in DEXTROSE 5% IN WATER 50 ML IV ONE (08:57)
[2018-01-03] MEDS ORDERED: MAGNESIUM SULFATE 4 GM/100 ML BAG IV ONE (09:15)
[2018-01-03] MEDS: LISINOPRIL 20 MG TABLET PO SCH (10:04)
[2018-01-03] MEDS: DULoxetine 30 MG CAPSULE PO SCH (10:04)
[2018-01-03] MEDS: GABAPENTIN 300 MG CAPSULE PO SCH ×3 (10:04→20:41)
[2018-01-03] MEDS: ENOXAPARIN 40 MG/0.4 ML SYRINGE SQ SCH (10:04)
--- NOTE | 2018-01-03 12:32 | General Surgery Progress Note ---
Subjective Patient reports: feels better, pain is less, flatus, bowel movement, blood in stool, afebrile Narrative: Note initiated : 01/03/18 at 12:30 pm Service Date, if different from initiated Date: [] Patient: Dandre Smith 57 y/o M admitted on 01/01/18 for Abd Pain/Ischemic Colitis. Chief Complaint: [the patient had severe lower abdomen and scrotal pain last evening. It is much better today. He is still having some bloody bowel movements. He has been afebrile. He denies nausea.] Objective Temp Pulse Resp BP Pulse Ox 98.7 F 77 18 114/73 96 01/03/18 11:00 01/03/18 03:23 01/03/18 11:00 01/03/18 11:00 01/03/18 11:00 - Additional Data Intake & Output - Last 24 hours: Intake & Output 01/01/18 01/02/18 01/03/18 01/04/18 05:59 05:59 05:59 05:59 Intake Total 4050 / 4050 5990 / 5990 1206 / 1206 Output Total 1225 / 1225 3575 / 3575 Balance 2825 / 2825 2415 / 2415 1206 / 1206 Weight 159 lb 228 lb 4.8 oz - General physical appearance well developed, well nourished, no distress, moderate distress, moderate pain - Eyes PERRL, normal ocular movement - ENT normal pinna, normal nares, normal mucosa, no hearing loss, no congestion - Neck no masses, no bruits, trachea midline, no lymphadectomy, no venous distension - Respiratory normal expansion, normal respiratory effort, clear to percussion, clear to auscultation - Cardiovascular Cardiovascular exam: Present: normal rate and rhythm, RRR, +S1, +S2. Absent: JVD, tachycardia - Abdomen tender (mild diffuse tenderness of the left side of abdomen and hypogastric suprapubic area), bowel sounds (present), surgical scars (none), masses (none) - Genitourinary other ( mild testicular tenderness bilaterally without significant Swelling) - Integumentary no rash, no growths, no abnormal pigmentation - Neurologic normal coordination, normal sensation - Musculoskeletal normal gait, normal posture - Psychiatric oriented to time, oriented to person, oriented to place, speech is normal, memory intact - Labs 01/03/18 04:06 01/03/18 04:06 Diabetes panel 01/03/18 Range/Units 04:06 Sodium 134 (133-145) mmol/L Potassium 3.7 (3.3-5.1) mmol/L Chloride 96 (96-108) mmol/L Carbon Dioxide 26 (22-30) mmol/L BUN 11 (6-20) mg/dl Creatinine 0.9 (0.7-1.2) mg/dl Glucose 179 H (70-105) mg/dL Calcium 8.7 (8.6-10.4) mg/dl AST 19 (0-37) U/l ALT 38 (0-40) U/l Alkaline Phosphatase 72 (39-117) U/L Total Protein 5.9 (5.9-8.4) gm/dL Albumin 3.1 L (3.2-5.2) gm/dL Triglycerides 108 (<150) mg/dl Calcium panel 01/03/18 Range/Units 04:06 Calcium 8.7 (8.6-10.4) mg/dl Phosphorus 2.6 L (2.7-4.5) mg/dL Albumin 3.1 L (3.2-5.2) gm/dL Pituitary panel 01/03/18 Range/Units 04:06 Sodium 134 (133-145) mmol/L Potassium 3.7 (3.3-5.1) mmol/L Chloride 96 (96-108) mmol/L Carbon Dioxide 26 (22-30) mmol/L BUN 11 (6-20) mg/dl Creatinine 0.9 (0.7-1.2) mg/dl Glucose 179 H (70-105) mg/dL Calcium 8.7 (8.6-10.4) mg/dl Adrenal panel 01/03/18 Range/Units 04:06 Sodium 134 (133-145) mmol/L Potassium 3.7 (3.3-5.1) mmol/L Chloride 96 (96-108) mmol/L Carbon Dioxide 26 (22-30) mmol/L BUN 11 (6-20) mg/dl Creatinine 0.9 (0.7-1.2) mg/dl Glucose 179 H (70-105) mg/dL Calcium 8.7 (8.6-10.4) mg/dl Total Bilirubin 1.1 H (0.0-1.0) mg/dL AST 19 (0-37) U/l ALT 38 (0-40) U/l Alkaline Phosphatase 72 (39-117) U/L Total Protein 5.9 (5.9-8.4) gm/dL Albumin 3.1 L (3.2-5.2) gm/dL Assessment and Plan (1) Acute ischemic colitis Status: Acute Assessment and plan: Will continue present therapy Metronidazole 500 mg IV every 6 hours Current Visit: Yes (2) Mass of right side of neck Status: Acute Assessment and plan: CT of neck shows solid mass anterior border right mid sternocleidomastoid. This will be biopsied prior to discharge Current Visit: Yes (3) Diabetic neuropathy Status: Acute Current Visit: No (4) Hereditary hemochromatosis Status: Acute Current Visit: No (5) TRAM (obstructive sleep apnea) Status: Acute Current Visit: No (6) STOUT (nonalcoholic steatohepatitis) Status: Chronic Current Visit: No (7) Type 2 diabetes mellitus Problem details: With peripheral neuropathy Status: Chronic Current Visit: No - Time Spent With Patient Total time spent is greater than 50% in coordination of care (as documented) at patient's floor/unit and/or counseling patient:
[2018-01-03] MEDS: metroNIDAZOLE 500 MG/100 ML BAG IV SCH ×2 (13:13→20:27)
[2018-01-03] MEDS: NORTRIPTYLINE 10 MG CAPSULE PO SCH (20:41)
[2018-01-03] MEDS: SUMAtriptan SUCCINATE 50 MG TABLET PO PRN (22:46)
[2018-01-04] MEDS: ACETAMINOPHEN 1,000 MG/100 ML BOTTLE IV SCH ×4 (00:17→17:48)
[2018-01-04] MEDS: KETOROLAC 30 MG/ML VIAL IV SCH ×4 (00:18→17:46)
[2018-01-04] MEDS: PIPERACILLIN SODIUM/TAZOBACTAM 3.375 GM in DEXTROSE 5% IN WATER 50 ML IV SCH ×4 (01:40→17:01)
[2018-01-04] MEDS: metroNIDAZOLE 500 MG/100 ML BAG IV SCH ×4 (01:41→19:02)
[2018-01-04 05:50] LABS: Mean Cell Volume 98.7 fL (80.0-100.0); Mean Corpuscular HGB Conc 33.5 g/dL (31.0-36.0); Mean Corpuscular Hemoglobin 33.1 pg (26.0-34.0); Platelet Count 175 K/mcL (140-440); RBC 3.77 M/mcL (4.50-5.90); Red Cell Distribution Width 13.3 % (11.5-14.5)
[2018-01-04 06:17] LABS: ALT/SGPT 40 U/l (0-40); Albumin/Globulin Ratio 1.1 (1.0-2.3); Alkaline Phosphatase 94 U/L (39-117); Bilirubin,Direct < 0.2 mg/dL (0.0-0.3); Blood Urea Nitrogen 9 mg/dl (6-20); Gamma Glutamyl Transpeptidase 54 U/L (8-61); Uric Acid 3.6 mg/dL (2.5-8.0)
[2018-01-04] MEDS: 0.9 % SODIUM CHLORIDE 10 ML SYRINGE IV SCH ×2 (06:37→16:52)
[2018-01-04] MEDS: 0.9 % SODIUM CHLORIDE 1,000 ML IV SCH ×3 (06:37→21:40)
[2018-01-04 06:50] LABS: Band Neutrophils % 6 % (0-10); Lymphocytes % 10 % (15-49); Monocytes % (Manual) 7 % (1-12); Platelet Estimate NORMAL (NORMAL); RBC Morphology NORMAL (NORMAL); Segmented Neutrophils % 77 % (38-78)
[2018-01-04] MEDS: INSULIN LISPRO 1 UNIT/0.01 ML UNIT SQ SCH ×4 (07:46→22:37)
[2018-01-04] MEDS: GABAPENTIN 300 MG CAPSULE PO SCH ×3 (08:08→21:02)
[2018-01-04] MEDS: DULoxetine 30 MG CAPSULE PO SCH (08:10)
[2018-01-04] MEDS: LISINOPRIL 20 MG TABLET PO SCH (08:11)
[2018-01-04] MEDS: ENOXAPARIN 40 MG/0.4 ML SYRINGE SQ SCH (08:13)
[2018-01-04] MEDS: PANTOPRAZOLE 40 MG TABLET PO SCH (08:13)
--- NOTE | 2018-01-04 13:52 | General Surgery Progress Note ---
Subjective Patient reports: feels better, still having pain, pain is less, tolerating liquids well, diarrhea, afebrile Narrative: Note initiated : 01/04/18 at 1:50 pm Service Date, if different from initiated Date: [] Patient: Dandre Smith 57 y/o M admitted on 01/01/18 for Abd Pain/Ischemic Colitis. Chief Complaint: [patient continues to improve. He has less pain and he denies nausea. He is having some diarrheal stools but has sustained minimal blood over the past 24 hours. Abdominal tenderness is significantly improved. He remains afebrile. White blood count has decreased to 15.3.] Objective Temp Pulse Resp BP Pulse Ox 98.0 F 61 12 145/87 99 01/04/18 12:00 01/04/18 12:00 01/04/18 12:32 01/04/18 12:32 01/04/18 12:32 - Additional Data Intake & Output - Last 24 hours: Intake & Output 01/02/18 01/03/18 01/04/18 01/05/18 05:59 05:59 05:59 05:59 Intake Total 4050 / 4050 5990 / 5990 3750 / 3750 1250 / 1250 Output Total 1225 / 1225 3575 / 3575 1750 / 1750 Balance 2825 / 2825 2415 / 2415 1999 1250 / 1250 Weight 159 lb 228 lb 4.8 oz 228 lb 14.4 oz - General physical appearance well developed, well nourished, moderate pain - Eyes PERRL, normal ocular movement - ENT normal pinna, normal nares, normal mucosa, no hearing loss, no congestion - Neck no masses, no bruits, trachea midline, no lymphadectomy, no venous distension, other (mass right neck unchanged) - Respiratory normal expansion, normal respiratory effort, clear to percussion, clear to auscultation - Cardiovascular Cardiovascular exam: Present: normal rate and rhythm, RRR, +S1, +S2. Absent: JVD, tachycardia - Abdomen tender ( mild tenderness in the suprapubic midline and left lower quadrant with decreased tenderness and left upper quadrant and left flank), bowel sounds ( present), surgical scars (none), masses (none) - Integumentary no rash, no growths, no abnormal pigmentation - Neurologic normal coordination, normal sensation - Musculoskeletal normal gait, normal posture - Psychiatric oriented to time, oriented to person, oriented to place, speech is normal, memory intact - Labs 01/04/18 04:19 01/04/18 04:19 Diabetes panel 01/04/18 Range/Units 04:19 Sodium 134 (133-145) mmol/L Potassium 3.5 (3.3-5.1) mmol/L Chloride 99 (96-108) mmol/L Carbon Dioxide 25 (22-30) mmol/L BUN 9 (6-20) mg/dl Creatinine 0.8 (0.7-1.2) mg/dl Glucose 142 H (70-105) mg/dL Calcium 8.4 L (8.6-10.4) mg/dl AST 19 (0-37) U/l ALT 40 (0-40) U/l Alkaline Phosphatase 94 (39-117) U/L Total Protein 5.7 L (5.9-8.4) gm/dL Albumin 3.0 L (3.2-5.2) gm/dL Triglycerides 172 H (<150) mg/dl Calcium panel 01/04/18 Range/Units 04:19 Calcium 8.4 L (8.6-10.4) mg/dl Phosphorus 2.9 (2.7-4.5) mg/dL Albumin 3.0 L (3.2-5.2) gm/dL Pituitary panel 01/04/18 Range/Units 04:19 Sodium 134 (133-145) mmol/L Potassium 3.5 (3.3-5.1) mmol/L Chloride 99 (96-108) mmol/L Carbon Dioxide 25 (22-30) mmol/L BUN 9 (6-20) mg/dl Creatinine 0.8 (0.7-1.2) mg/dl Glucose 142 H (70-105) mg/dL Calcium 8.4 L (8.6-10.4) mg/dl Adrenal panel 01/04/18 Range/Units 04:19 Sodium 134 (133-145) mmol/L Potassium 3.5 (3.3-5.1) mmol/L Chloride 99 (96-108) mmol/L Carbon Dioxide 25 (22-30) mmol/L BUN 9 (6-20) mg/dl Creatinine 0.8 (0.7-1.2) mg/dl Glucose 142 H (70-105) mg/dL Calcium 8.4 L (8.6-10.4) mg/dl Total Bilirubin 0.5 (0.0-1.0) mg/dL AST 19 (0-37) U/l ALT 40 (0-40) U/l Alkaline Phosphatase 94 (39-117) U/L Total Protein 5.7 L (5.9-8.4) gm/dL Albumin 3.0 L (3.2-5.2) gm/dL Assessment and Plan (1) Acute ischemic colitis Status: Acute Assessment and plan: Will continue present therapy Metronidazole 500 mg IV every [address] of abdomen and pelvis To be done on 06 January Current Visit: Yes (2) Mass of right side of neck Status: Acute Assessment and plan: CT of neck shows solid mass anterior border right mid sternocleidomastoid. This will be biopsied prior to discharge Current Visit: Yes (3) Diabetic neuropathy Status: Acute Current Visit: No (4) Hereditary hemochromatosis Status: Acute Current Visit: No (5) TRAM (obstructive sleep apnea) Status: Acute Current Visit: No (6) STOUT (nonalcoholic steatohepatitis) Status: Chronic Current Visit: No (7) Type 2 diabetes mellitus Problem details: With peripheral neuropathy Status: Chronic Current Visit: No - Time Spent With Patient Total time spent is greater than 50% in coordination of care (as documented) at patient's floor/unit and/or counseling patient:
[2018-01-04] MEDS: NORTRIPTYLINE 10 MG CAPSULE PO SCH (21:02)
[2018-01-04] MEDS: SUMAtriptan SUCCINATE 50 MG TABLET PO PRN (22:47)
[2018-01-05] MEDS: KETOROLAC 30 MG/ML VIAL IV SCH ×3 (00:16→13:19)
[2018-01-05] MEDS: PIPERACILLIN SODIUM/TAZOBACTAM 3.375 GM in DEXTROSE 5% IN WATER 50 ML IV SCH ×4 (00:16→16:46)
[2018-01-05] MEDS: metroNIDAZOLE 500 MG/100 ML BAG IV SCH ×4 (00:17→19:16)
[2018-01-05] MEDS: 0.9 % SODIUM CHLORIDE 10 ML SYRINGE IV SCH ×4 (00:53→21:10)
[2018-01-05] MEDS: LISINOPRIL 20 MG TABLET PO SCH ×2 (04:55→07:42)
[2018-01-05] MEDS: DULoxetine 30 MG CAPSULE PO SCH (07:23)
[2018-01-05] MEDS: ENOXAPARIN 40 MG/0.4 ML SYRINGE SQ SCH (07:23)
[2018-01-05] MEDS: PANTOPRAZOLE 40 MG TABLET PO SCH (07:23)
[2018-01-05] MEDS: GABAPENTIN 300 MG CAPSULE PO SCH ×3 (07:23→20:00)
[2018-01-05] MEDS: 0.9 % SODIUM CHLORIDE 1,000 ML IV SCH ×2 (07:28→13:18)
[2018-01-05 07:41] LABS: Mean Cell Volume 97.9 fL (80.0-100.0); Mean Corpuscular Hemoglobin 33.3 pg (26.0-34.0); Platelet Count 188 K/mcL (140-440); RBC 3.67 M/mcL (4.50-5.90); Red Cell Distribution Width 13.5 % (11.5-14.5)
[2018-01-05] MEDS: INSULIN LISPRO 1 UNIT/0.01 ML UNIT SQ SCH ×4 (07:41→20:00)
[2018-01-05 07:49] LABS: ALT/SGPT 55 U/l (0-40); Albumin 3.1 gm/dL (3.2-5.2); Albumin/Globulin Ratio 1.1 (1.0-2.3); Alkaline Phosphatase 71 U/L (39-117); Bilirubin,Direct < 0.2 mg/dL (0.0-0.3); Blood Urea Nitrogen 11 mg/dl (6-20); Gamma Glutamyl Transpeptidase 105 U/L (8-61); Uric Acid 4.1 mg/dL (2.5-8.0)
[2018-01-05 12:50] LABS: Band Neutrophils % 3 % (0-10); Eosinophils % (Manual) 2 % (0-7); Lymphocytes % 20 % (15-49); Monocytes % (Manual) 8 % (1-12); Platelet Estimate NORMAL (NORMAL); RBC Morphology NORMAL (NORMAL); Segmented Neutrophils % 67 % (38-78)
--- NOTE | 2018-01-05 14:17 | General Surgery Progress Note ---
Subjective Patient reports: feels better, pain is less, tolerating liquids well, flatus, bowel movement, afebrile Narrative: Note initiated : 01/05/18 at 2:15 pm Service Date, if different from initiated Date: [] Patient: Dandre Smith 57 y/o M admitted on 01/01/18 for Abd Pain/Ischemic Colitis. Chief Complaint: [patient feels much better. He has had soft semi-formed bowel movements but no bleeding. He states that his pain is now at a level of 2 and he denies having any tenderness to palpation. He complains of hunger. He has been afebrile.] Objective Temp Pulse Resp BP Pulse Ox 97.6 F 62 20 189/94 96 01/05/18 12:00 01/05/18 12:00 01/05/18 12:00 01/05/18 12:00 01/05/18 12:00 - Additional Data Intake & Output - Last 24 hours: Intake & Output 01/03/18 01/04/18 01/05/18 01/06/18 05:59 05:59 05:59 05:59 Intake Total 5990 / 5990 3750 / 3750 6000 / 6000 150 / 150 Output Total 3575 / 3575 1750 / 1750 950 / 950 Balance 2415 / 2415 1999 / 1999 5050 / 5050 150 / 150 Weight 228 lb 4.8 oz 228 lb 14.4 oz 231 lb - General physical appearance well developed, well nourished, no distress, no pain - Eyes PERRL, normal ocular movement - ENT normal pinna, normal nares, normal mucosa, no hearing loss, no congestion - Neck no masses, no bruits, trachea midline, no lymphadectomy, no venous distension - Respiratory normal expansion, normal respiratory effort, clear to percussion, clear to auscultation - Cardiovascular Cardiovascular exam: Present: normal rate and rhythm, RRR, +S1, +S2. Absent: JVD, tachycardia - Abdomen tender (minimal tenderness to palpation of abdomen with good active bowel sounds ; no guarding or rigidity), bowel sounds (present), surgical scars (none), masses (none) - Integumentary no rash, no growths, no abnormal pigmentation - Neurologic normal coordination, normal sensation - Musculoskeletal normal gait, normal posture - Psychiatric oriented to time, oriented to person, oriented to place, speech is normal, memory intact - Labs 01/05/18 04:27 01/05/18 04:27 Diabetes panel 01/05/18 Range/Units 04:27 Sodium 138 (133-145) mmol/L Potassium 3.3 (3.3-5.1) mmol/L Chloride 102 (96-108) mmol/L Carbon Dioxide 23 (22-30) mmol/L BUN 11 (6-20) mg/dl Creatinine 0.9 (0.7-1.2) mg/dl Glucose 117 H (70-105) mg/dL Calcium 8.5 L (8.6-10.4) mg/dl AST 35 (0-37) U/l ALT 55 H (0-40) U/l Alkaline Phosphatase 71 (39-117) U/L Total Protein 5.9 (5.9-8.4) gm/dL Albumin 3.1 L (3.2-5.2) gm/dL Triglycerides 102 (<150) mg/dl Calcium panel 01/05/18 Range/Units 04:27 Calcium 8.5 L (8.6-10.4) mg/dl Phosphorus 3.8 (2.7-4.5) mg/dL Albumin 3.1 L (3.2-5.2) gm/dL Pituitary panel 01/05/18 Range/Units 04:27 Sodium 138 (133-145) mmol/L Potassium 3.3 (3.3-5.1) mmol/L Chloride 102 (96-108) mmol/L Carbon Dioxide 23 (22-30) mmol/L BUN 11 (6-20) mg/dl Creatinine 0.9 (0.7-1.2) mg/dl Glucose 117 H (70-105) mg/dL Calcium 8.5 L (8.6-10.4) mg/dl Adrenal panel 01/05/18 Range/Units 04:27 Sodium 138 (133-145) mmol/L Potassium 3.3 (3.3-5.1) mmol/L Chloride 102 (96-108) mmol/L Carbon Dioxide 23 (22-30) mmol/L BUN 11 (6-20) mg/dl Creatinine 0.9 (0.7-1.2) mg/dl Glucose 117 H (70-105) mg/dL Calcium 8.5 L (8.6-10.4) mg/dl Total Bilirubin 0.4 (0.0-1.0) mg/dL AST 35 (0-37) U/l ALT 55 H (0-40) U/l Alkaline Phosphatase 71 (39-117) U/L Total Protein 5.9 (5.9-8.4) gm/dL Albumin 3.1 L (3.2-5.2) gm/dL Assessment and Plan (1) Acute ischemic colitis Status: Acute Assessment and plan: Will continue present therapy Metronidazole 500 mg IV every [address] of abdomen and pelvis To be done on 06 January Current Visit: Yes (2) Mass of right side of neck Status: Acute Assessment and plan: CT of neck shows solid mass anterior border right mid sternocleidomastoid. This will be biopsied prior to discharge Current Visit: Yes (3) Diabetic neuropathy Status: Acute Current Visit: No (4) Hereditary hemochromatosis Status: Acute Current Visit: No (5) TRAM (obstructive sleep apnea) Status: Acute Current Visit: No (6) STOUT (nonalcoholic steatohepatitis) Status: Chronic Current Visit: No (7) Type 2 diabetes mellitus Problem details: With peripheral neuropathy Status: Chronic Current Visit: No - Time Spent With Patient Total time spent is greater than 50% in coordination of care (as documented) at patient's floor/unit and/or counseling patient:
[2018-01-05] MEDS: HYDROmorphone 2 MG TABLET PO PRN (19:12)
[2018-01-05] MEDS: NORTRIPTYLINE 10 MG CAPSULE PO SCH (20:00)
[2018-01-05] MEDS: SUMAtriptan SUCCINATE 50 MG TABLET PO PRN (23:15)
[2018-01-06] MEDS: PIPERACILLIN SODIUM/TAZOBACTAM 3.375 GM in DEXTROSE 5% IN WATER 50 ML IV SCH ×4 (00:04→17:19)
[2018-01-06] MEDS: 0.9 % SODIUM CHLORIDE 1,000 ML IV SCH ×3 (00:07→18:02)
[2018-01-06] MEDS: metroNIDAZOLE 500 MG/100 ML BAG IV SCH ×4 (01:27→19:14)
[2018-01-06] MEDS: HYDROmorphone 2 MG TABLET PO PRN ×3 (03:18→12:05)
[2018-01-06 05:32] LABS: Mean Cell Volume 98.9 fL (80.0-100.0); Mean Corpuscular HGB Conc 33.4 g/dL (31.0-36.0); Platelet Count 236 K/mcL (140-440); RBC 3.81 M/mcL (4.50-5.90); Red Cell Distribution Width 13.5 % (11.5-14.5)
[2018-01-06] MEDS: 0.9 % SODIUM CHLORIDE 10 ML SYRINGE IV SCH ×3 (05:52→20:38)
[2018-01-06 06:31] LABS: ALT/SGPT 44 U/l (0-40); Alkaline Phosphatase 71 U/L (39-117); Bilirubin,Direct < 0.2 mg/dL (0.0-0.3); Blood Urea Nitrogen 10 mg/dl (6-20); Gamma Glutamyl Transpeptidase 103 U/L (8-61); Uric Acid 4.3 mg/dL (2.5-8.0)
[2018-01-06 07:14] LABS: Band Neutrophils % 4 % (0-10); Basophils % (Manual) 1 % (0-2); Eosinophils % (Manual) 2 % (0-7); Lymphocytes % 17 % (15-49); Monocytes % (Manual) 9 % (1-12); Platelet Estimate NORM (NORMAL); RBC Morphology NORMAL (NORMAL); Segmented Neutrophils % 67 % (38-78)
[2018-01-06] MEDS: PANTOPRAZOLE 40 MG TABLET PO SCH (07:14)
[2018-01-06] MEDS: DULoxetine 30 MG CAPSULE PO SCH (07:52)
[2018-01-06] MEDS: GABAPENTIN 300 MG CAPSULE PO SCH ×3 (07:52→20:18)
[2018-01-06] MEDS: LISINOPRIL 20 MG TABLET PO SCH (07:52)
[2018-01-06] MEDS: ENOXAPARIN 40 MG/0.4 ML SYRINGE SQ SCH (07:52)
[2018-01-06] MEDS: INSULIN LISPRO 1 UNIT/0.01 ML UNIT SQ SCH ×4 (07:53→20:36)
[2018-01-06] MEDS ORDERED: IOPAMIDOL 100 ML BOTTLE IV ONE (08:39)
--- NOTE | 2018-01-06 09:02 | Cat Scan Report ---
CLINICAL INFORMATION: History of colitis. Follow-up. COMPARISON: 01/01/2018 TECHNIQUE: Axial images were obtained through the abdomen and pelvis. Sagittally and coronally reformatted images. 80 mL contrast material injected intravenously. Oral contrast material was given FINDINGS: Colon remains abnormal with circumferential colonic wall thickening. This involves the splenic flexure, descending colon, and portion of the sigmoid colon. This may be slightly improved. There is prominence of the vasa recta. No significant adenopathy. There is minimal free intraperitoneal fluid. There is no pneumoperitoneum. No pneumatosis. No biliary or portal venous gas. No intra-abdominal abscess Findings remain consistent with colitis. This is unlikely to be secondary to ischemic colitis. Abnormality is predominantly in the inferior mesenteric artery distribution but there appears to be sparing of the distal sigmoid colon and rectum. The inferior mesenteric artery is opacified. There is calcified plaque at its origin but no definite stenosis and there is no occlusion. Inflammatory bowel disease is possible. Terminal ileum appears normal. No small bowel abnormalities identified. Appearance is considered most consistent with infectious colitis. Continued follow-up recommended. Colonoscopy of benefit. Descending colon and transverse colon are negative. No new abnormalities. Lung bases are negative. No pericardial fluid. There is minimal bilateral pleural fluid. There is abnormality in the liver consistent with hepatic steatosis. Findings are unchanged. No hepatic mass. No evidence for cirrhosis. Gallbladder is present and no calcified gallstones. No dilated bile ducts. Pancreas is negative. No pancreatic mass. No peripancreatic abnormality. Spleen is negative for hepatosplenomegaly. Normal enhancement of the splenic and portal veins. Adrenal glands are negative. There is a 2 mm nonobstructing left midpole renal calculus. There is no hydronephrosis. No solid renal mass. No bladder calculus. No retroperitoneal lymphadenopathy. No significant mesenteric adenopathy. No lumbar compression fracture. Sacrum and pelvis are negative. IMPRESSION: 1. Abnormality of the descending and proximal sigmoid colons. Findings remain consistent with colitis and appears slightly improved since 01/01/2018 2. Small amount of free intraperitoneal fluid. No intra-abdominal abscess. The exam was performed using radiation dose optimization techniques including, but not limited to, automated exposure control, adjustment of the mA and/or kV according to patient size and use of iterative reconstruction technique. Interpreted and Authenticated by: Rogelio Gambino 01/06/18
[2018-01-06] MEDS: SUMAtriptan SUCCINATE 50 MG TABLET PO PRN (13:26)
[2018-01-06] MEDS ORDERED: MAGNESIUM SULFATE 32.48 MEQ in DEXTROSE 5% IN WATER 50 ML IV ONE (16:53)
--- NOTE | 2018-01-06 17:01 | General Surgery Progress Note ---
Subjective Patient reports: feels better, pain is less, tolerating a regular diet, flatus, bowel movement, afebrile Narrative: Note initiated : 01/06/18 at 4:59 pm Service Date, if different from initiated Date: [] Patient: Dandre Smith 57 y/o M admitted on 01/01/18 for Abd Pain/Ischemic Colitis. Chief Complaint: [patient is improving daily. He is having bowel movements but no bleeding per rectum. He has some abdominal distention but denies nausea and vomiting. He is tolerating his diet without difficulty. CT shows improvement in the inflammatory changes of his colon without any progression in the area of distribution in the left colon. White blood count increased to 12.7. He also has elevated high blood pressure which is higher than previously. We'll decrease his IV to TKO and add amlodipine to his treatment regimen.] Objective Temp Pulse Resp BP Pulse Ox 98.8 F 60 18 220/106 95 01/06/18 16:35 01/06/18 16:35 01/06/18 11:49 01/06/18 16:35 01/06/18 16:35 - Additional Data Intake & Output - Last 24 hours: Intake & Output 01/04/18 01/05/18 01/06/18 01/07/18 05:59 05:59 05:59 05:59 Intake Total 3750 / 3750 6000 / 6000 5160 / 5160 1040 / 1040 Output Total 1750 / 1750 950 / 950 3650 / 3650 3875 / 3875 Balance 1999 / 1999 5050 / 5050 1510 / 1510 -2835 / -2835 Weight 228 lb 14.4 oz 231 lb 238 lb 1.6 oz - General physical appearance well developed, well nourished, no distress - Eyes PERRL, normal ocular movement - ENT normal pinna, normal nares, normal mucosa, no hearing loss, no congestion - Neck no masses, no bruits, trachea midline, no lymphadectomy, no venous distension - Respiratory normal expansion, normal respiratory effort, clear to percussion, clear to auscultation - Cardiovascular Cardiovascular exam: Present: normal rate and rhythm, RRR, +S1, +S2. Absent: JVD, tachycardia - Abdomen tender (minimal tenderness left lateral abdomen; good active bowel sounds; mild distention), bowel sounds (present), surgical scars (none), masses (none) - Integumentary no rash, no growths, no abnormal pigmentation - Neurologic normal coordination, normal sensation - Musculoskeletal normal gait, normal posture - Psychiatric oriented to time, oriented to person, oriented to place, speech is normal, memory intact - Labs 01/06/18 04:24 01/06/18 04:24 Diabetes panel 01/06/18 Range/Units 04:24 Sodium 138 (133-145) mmol/L Potassium 3.5 (3.3-5.1) mmol/L Chloride 100 (96-108) mmol/L Carbon Dioxide 22 (22-30) mmol/L BUN 10 (6-20) mg/dl Creatinine 0.9 (0.7-1.2) mg/dl Glucose 165 H (70-105) mg/dL Calcium 8.6 (8.6-10.4) mg/dl AST 22 (0-37) U/l ALT 44 H (0-40) U/l Alkaline Phosphatase 71 (39-117) U/L Total Protein 6.0 (5.9-8.4) gm/dL Albumin 3.0 L (3.2-5.2) gm/dL Triglycerides 109 (<150) mg/dl Calcium panel 01/06/18 Range/Units 04:24 Calcium 8.6 (8.6-10.4) mg/dl Phosphorus 3.0 (2.7-4.5) mg/dL Albumin 3.0 L (3.2-5.2) gm/dL Pituitary panel 01/06/18 Range/Units 04:24 Sodium 138 (133-145) mmol/L Potassium 3.5 (3.3-5.1) mmol/L Chloride 100 (96-108) mmol/L Carbon Dioxide 22 (22-30) mmol/L BUN 10 (6-20) mg/dl Creatinine 0.9 (0.7-1.2) mg/dl Glucose 165 H (70-105) mg/dL Calcium 8.6 (8.6-10.4) mg/dl Adrenal panel 01/06/18 Range/Units 04:24 Sodium 138 (133-145) mmol/L Potassium 3.5 (3.3-5.1) mmol/L Chloride 100 (96-108) mmol/L Carbon Dioxide 22 (22-30) mmol/L BUN 10 (6-20) mg/dl Creatinine 0.9 (0.7-1.2) mg/dl Glucose 165 H (70-105) mg/dL Calcium 8.6 (8.6-10.4) mg/dl Total Bilirubin 0.4 (0.0-1.0) mg/dL AST 22 (0-37) U/l ALT 44 H (0-40) U/l Alkaline Phosphatase 71 (39-117) U/L Total Protein 6.0 (5.9-8.4) gm/dL Albumin 3.0 L (3.2-5.2) gm/dL Assessment and Plan (1) Acute ischemic colitis Status: Acute Assessment and plan: Will continue present therapy Metronidazole 500 mg IV every 6 hours Current Visit: Yes (2) Mass of right side of neck Status: Acute Assessment and plan: CT of neck shows solid mass anterior border right mid sternocleidomastoid. We'll schedule follow-up with ENT as an outpatient Current Visit: Yes (3) Diabetic neuropathy Status: Acute Current Visit: No (4) Hereditary hemochromatosis Status: Acute Current Visit: No (5) TRAM (obstructive sleep apnea) Status: Acute Current Visit: No (6) STOUT (nonalcoholic steatohepatitis) Status: Chronic Current Visit: No (7) Type 2 diabetes mellitus Problem details: With peripheral neuropathy Status: Chronic Current Visit: No (8) Hypertension, essential Status: Chronic Assessment and plan: Amlodipine 10 mg now and daily Current Visit: No - Time Spent With Patient Total time spent is greater than 50% in coordination of care (as documented) at patient's floor/unit and/or counseling patient:
[2018-01-06] MEDS: amLODIPine 10 MG TABLET PO SCH (17:16)
[2018-01-06] MEDS: MAGNESIUM SULFATE 2 GM/50 ML BAG IV SCH ×2 (18:01→20:18)
[2018-01-06] MEDS: NORTRIPTYLINE 10 MG CAPSULE PO SCH (20:18)
[2018-01-07] MEDS: metroNIDAZOLE 500 MG/100 ML BAG IV SCH (00:05)
[2018-01-07] MEDS: PIPERACILLIN SODIUM/TAZOBACTAM 3.375 GM in DEXTROSE 5% IN WATER 50 ML IV SCH ×2 (00:06→06:03)
[2018-01-07] MEDS: SUMAtriptan SUCCINATE 50 MG TABLET PO PRN (04:52)
[2018-01-07] MEDS: 0.9 % SODIUM CHLORIDE 10 ML SYRINGE IV SCH (06:04)
[2018-01-07] MEDS: INSULIN LISPRO 1 UNIT/0.01 ML UNIT SQ SCH ×2 (07:24→11:45)
[2018-01-07] MEDS: PANTOPRAZOLE 40 MG TABLET PO SCH (07:28)
[2018-01-07] MEDS: ENOXAPARIN 40 MG/0.4 ML SYRINGE SQ SCH (09:10)
[2018-01-07] MEDS: DULoxetine 30 MG CAPSULE PO SCH (09:10)
[2018-01-07] MEDS: GABAPENTIN 300 MG CAPSULE PO SCH (09:12)
[2018-01-07] MEDS: amLODIPine 10 MG TABLET PO SCH (09:12)
[2018-01-07] MEDS: LISINOPRIL 20 MG TABLET PO SCH (09:12)
--- NOTE | 2018-01-07 14:00 | Discharge Summary ---
Providers - Providers Patient information: Note initiated : 01/07/18 at 1:59 pm Service Date, if different from initiated Date: [] Patient: Dandre Smith 57 y/o M admitted on 01/01/18 for Abd Pain/Ischemic Colitis. Chief Complaint: [] Date of admission: 01/01/18 Discharge date: 01/07/18 Attending physician: Mitchell Oshea None Hospitalization Hospital course: 57-year-old male who presents with a 2 day history of severe abdominal pain with associated nausea and vomiting. He had nausea and vomiting 6 with increasing pain which prompted him to come to the emergency room. In the emergency room he was in severe distress with low-grade fever. White blood count was 25,000. CT of the abdomen showed segmental colitis involving distal transverse, descending and proximal sigmoid colon. Patient was admitted with acute segmental colitis of uncertain etiology. He was treated with Zosyn initially but did not have any chest significant change. Metronidazole was adequate and he had prompt decrease in white blood count with a slow resolution of symptoms. After 4 days a follow-up CT was done which shows improvement in the acute inflammation without any progression. His white blood count has returned to normal. He is having semi-formed bowel movements. He did have hematochezia for about 3 days but has not had any for the past 36 hours. Abdominal exam is benign at this time and he is stable for discharge home. Discharge diagnosis: acute segmental colitis Secondary discharge diagnosis: Hypertension Diabetes mellitus Chronic obstructive sleep apnea nonalcoholic steatohepatitis syndrome Right neck mass Reason for admission: severe abdominal pain nausea vomiting and leukocytosis Procedures: None Pertinent studies/significant findings: CT of neck CT of abdomen and pelvis with contrast Complications: None Exam Temp Pulse Resp BP Pulse Ox 98.2 F 80 16 138/83 95 01/07/18 12:35 01/07/18 12:35 01/07/18 12:35 01/07/18 12:35 01/07/18 12:35 - General physical appearance well developed, well nourished, no distress - Eyes PERRL, normal ocular movement - ENT normal pinna, normal nares, normal mucosa, no hearing loss, no congestion - Head Head exam IM: Present: atraumatic, normocephalic - Neck no bruits, trachea midline, no lymphadectomy, no venous distension, other (firm mass right neck and anterior border of the middle of the sternocleidomastoid with fixation) - Cardiovascular Cardiovascular exam IM: Present: normal rate and rhythm - Respiratory normal expansion, normal respiratory effort, clear to percussion, clear to auscultation - Abdomen Abdomen: Present: soft, non tender, bowel sounds Hernia: Present: none - Genitourinary Present: normal penis with no external lesions - Integumentary Present: no rash, no growths, no abnormal pigmentation - Neurologic Present: normal coordination, normal sensation - Musculoskeletal Present: normal gait, normal posture - Psychiatric Present: oriented to time, oriented to person, oriented to place, speech is normal, memory intact Discharge Plan - Patient/Caregiver Discharge Instructions Activity: increase activity as tolerated Diet: Regular Diet Additional Instructions: The patient will be followed up in the office in [address] of abdomen and pelvis will be done in 2 weeks After the patient is improved from his GI problems he will be referred to ENT for treatment of his right neck mass Prescriptions: Ciprofloxacin [Cipro] 500 mg PO BID #30 tab metroNIDAZOLE [Flagyl] 500 mg PO TID #45 tab - Follow up Plan Follow up with: Antonio Robin MD [Primary Care Provider] - Mitchell Oshea MD [Physician] - Disposition: Home, Self-Care Prognosis: Good Rehab Potential: Good I certify that the patient requires SNF services.: No Overall status at discharge: patient is not back to baseline Pending Studies Resuscitation Status Full Code Diet GI Soft/Transitional Start WedJan 05 141 Amlodipine Besylate (Norvasc) 10 mg PO DAILY [facility] Last Admin: 01/07/18 09:12 Dose: 10 mg Admin: 01/06/18 17:16 Dose: 10 mg Diagnostic Test (Pha) (Accu-Chek) 1 each FS ACHS [facility] Last Admin: 01/07/18 11:44 Dose: 1 each Admin: 01/07/18 07:42 Dose: 1 each Admin: 01/06/18 20:37 Dose: 1 each Admin: 01/06/18 16:59 Dose: 1 each Admin: 01/06/18 11:36 Dose: 1 each Admin: 01/06/18 07:19 Dose: 1 each Admin: 01/05/18 19:33 Dose: 1 each Admin: 01/05/18 16:45 Dose: 1 each Admin: 01/05/18 12:41 Dose: 1 each Admin: 01/05/18 07:23 Dose: 1 each Admin: 01/04/18 21:04 Dose: 1 each Admin: 01/04/18 16:52 Dose: 1 each Admin: 01/04/18 11:44 Dose: 1 each Admin: 01/04/18 07:46 Dose: 1 each Admin: 01/03/18 20:49 Dose: 1 each Admin: 01/03/18 17:54 Dose: 1 each Admin: 01/03/18 12:23 Dose: 1 each Admin: 01/03/18 07:58 Dose: 1 each Admin: 01/02/18 21:24 Dose: 1 each Admin: 01/02/18 18:02 Dose: 1 each Admin: 01/02/18 11:42 Dose: 1 each Admin: 01/02/18 07:36 Dose: 1 each Admin: 01/01/18 21:02 Dose: 1 each Admin: 01/01/18 17:15 Dose: 1 each Duloxetine HCl (Cymbalta) 60 mg PO QDAY [facility] Last Admin: 01/07/18 09:10 Dose: 60 mg Admin: 01/06/18 07:52 Dose: 60 mg Admin: 01/05/18 07:23 Dose: 60 mg Admin: 01/04/18 08:10 Dose: 60 mg Admin: 01/03/18 10:04 Dose: 60 mg Admin: 01/02/18 08:55 Dose: 60 mg Enoxaparin Sodium (Lovenox) 40 mg SQ DAILY [facility] Last Admin: 01/07/18 09:10 Dose: 40 mg Admin: 01/06/18 07:52 Dose: 40 mg Admin: 01/05/18 07:23 Dose: 40 mg Admin: 01/04/18 08:13 Dose: 40 mg Admin: 01/03/18 10:04 Dose: 40 mg Admin: 01/02/18 08:56 Dose: 40 mg Gabapentin (Neurontin) 600 mg PO TID [facility] Last Admin: 01/07/18 09:12 Dose: 600 mg Admin: 01/06/18 20:18 Dose: 600 mg Admin: 01/06/18 16:04 Dose: 600 mg Admin: 01/06/18 07:52 Dose: 600 mg Admin: 01/05/18 20:00 Dose: 600 mg Admin: 01/05/18 14:44 Dose: 600 mg Admin: 01/05/18 07:23 Dose: 600 mg Admin: 01/04/18 21:02 Dose: 600 mg Admin: 01/04/18 15:24 Dose: 600 mg Admin: 01/04/18 08:08 Dose: 600 mg Admin: 01/03/18 20:41 Dose: 600 mg Admin: 01/03/18 15:31 Dose: 600 mg Admin: 01/03/18 10:04 Dose: 600 mg Admin: 01/02/18 21:24 Dose: 600 mg Admin: 01/02/18 14:27 Dose: 600 mg Admin: 01/02/18 08:56 Dose: 600 mg Admin: 01/01/18 21:02 Dose: 600 mg Admin: 01/01/18 14:52 Dose: 600 mg Hydromorphone HCl (Dilaudid) 2 mg PO Q4HP PRN PRN Reason: PAIN LEVEL 3-6 Last Admin: 01/06/18 12:05 Dose: 2 mg Admin: 01/06/18 07:27 Dose: 2 mg Admin: 01/06/18 03:18 Dose: 2 mg Admin: 01/05/18 19:12 Dose: 2 mg Admin: 01/02/18 12:40 Dose: 2 mg Admin: 01/01/18 17:17 Dose: 2 mg Insulin Human Lispro (Humalog) 0 unit SQ ACHS TODD PRN Reason: Protocol Last Admin: 01/07/18 11:45 Dose: 6 unit Admin: 01/07/18 07:24 Dose: 4 unit Admin: 01/06/18 20:36 Dose: 6 unit Admin: 01/06/18 17:16 Dose: 2 unit Admin: 01/06/18 12:05 Dose: 6 unit Admin: 01/06/18 07:53 Dose: 2 unit Admin: 01/05/18 20:00 Dose: 2 unit Admin: 01/05/18 17:34 Dose: 6 unit Admin: 01/05/18 13:25 Dose: 2 unit Admin: 01/05/18 07:41 Dose: Not Given Admin: 01/04/18 22:37 Dose: 6 unit Admin: 01/04/18 16:52 Dose: Not Given Admin: 01/04/18 11:45 Dose: 4 unit Admin: 01/04/18 07:46 Dose: Not Given Admin: 01/03/18 20:57 Dose: 2 unit Admin: 01/03/18 18:33 Dose: 2 unit Admin: 01/03/18 13:08 Dose: 6 unit Admin: 01/03/18 07:58 Dose: 2 unit Admin: 01/02/18 21:25 Dose: 6 unit Admin: 01/02/18 18:27 Dose: 6 unit Admin: 01/02/18 11:58 Dose: 6 unit Admin: 01/02/18 07:43 Dose: 4 unit Admin: 01/01/18 21:02 Dose: 4 unit Admin: 01/01/18 17:17 Dose: Not Given Lisinopril (Zestril) 40 mg PO QDAY [facility] Last Admin: 01/07/18 09:12 Dose: 40 mg Admin: 01/06/18 07:52 Dose: 40 mg Admin: 01/05/18 07:42 Dose: Admin: 01/05/18 04:55 Dose: 40 mg Admin: 01/04/18 08:11 Dose: 40 mg Admin: 01/03/18 10:04 Dose: 40 mg Admin: 01/02/18 08:55 Dose: 40 mg Meperidine HCl (Demerol) 50 mg IV Q4HP PRN PRN Reason: Pain Last Admin: 01/05/18 03:26 Dose: 50 mg Nortriptyline HCl (Pamelor) 10 mg PO QHS [facility] Last Admin: 01/06/18 20:18 Dose: 10 mg Admin: 01/05/18 20:00 Dose: 10 mg Admin: 01/04/18 21:02 Dose: 10 mg Admin: 01/03/18 20:41 Dose: 10 mg Admin: 01/02/18 21:24 Dose: 10 mg Admin: 01/01/18 21:02 Dose: 10 mg [facility]op[facility]ole [facility]) [facility] Last Admin: 01/07/18 07:28 Dose: 40 mg Admin: 01/06/18 07:14 Dose: 40 mg Admin: 01/05/18 07:23 Dose: 40 mg Admin: 01/04/18 08:13 Dose: 40 mg Admin: 01/03/18 07:57 Dose: 40 mg Admin: 01/02/18 07:43 Dose: 40 mg Sumatriptan Succinate (Imitrex) 25 mg PO PRN PRN PRN Reason: MIGRAINE HEADACHE Last Admin: 01/07/18 04:52 Dose: 25 mg Admin: 01/06/18 13:26 Dose: 25 mg Admin: 01/05/18 23:15 Dose: 25 mg Admin: 01/04/18 22:47 Dose: 25 mg Admin: 01/03/18 22:46 Dose: 25 mg Shift Summary 01/07/18 04:45 Shift Summary by Hal Farnsworth Pt A&O, up ad peter in room. Ambulates independently from bed to bathroom and back. Voiding large amts of clear yellow urine per urinal. Reports having loose stools without blood. Pt had no pain medication but requested migraine meds x1 this shift. IVF site LFA TKO no longer assessable, will reach out to MD as pt set to DC today. Initialized on 01/07/18 04:45 - END OF NOTE
== END 2018-01-07 14:50 | disposition home or self-care (01) | DRG 387 ==
LOC: ED 06:12 → MEDSUR 13:32
PROVIDERS: ADMIT Family Medicine Adult Medicine; ATTEND Family Medicine Adult Medicine